=== PATIENT | male | born 2000 | race Two or more races ===

== ENCOUNTER 2022-01-07 21:56 | Emergency (ER) | payer MEDICAID ==
[~2022-01-07] VITALS: Ht 170.2 cm; Wt 75.0 kg
[2022-01-07] MEDS ORDERED: BACITRACIN 28 GM OINTMENT TP ONE (22:45)
[2022-01-07] MEDS ORDERED: LIDOCAINE 1% 10 ML VIAL SQ ONE (22:45)
[2022-01-07] MEDS ORDERED: POVIDONE-IODINE 10% 15 ML SOLUTION UD TP ONE (22:45)
[2022-01-07 23:30] VITALS: BP 121/65
== END 2022-01-07 23:37 | disposition home or self-care (01) ==
LOC: EMS 21:58
DX: S61.411A Laceration without foreign body of right hand, initial encounter (principal); J45.909 Unspecified asthma, uncomplicated; F17.210 Nicotine dependence, cigarettes, uncomplicated; F12.90 Cannabis use, unspecified, uncomplicated; W26.0XXA Contact with knife, initial encounter; Y93.89 Activity, other specified; Y92.89 Other specified places as the place of occurrence of the external cause; Y99.8 Other external cause status
CPT/HCPCS: 99282; 12001; J3490; 99283

== ENCOUNTER 2022-01-17 13:15 | Emergency (ER) | payer MEDICAID ==
[~2022-01-17] VITALS: Ht 172.7 cm; Wt 90.9 kg
[2022-01-17 13:26] VITALS: BP 114/61
== END 2022-01-17 16:05 | disposition home or self-care (01) ==
LOC: EMS 13:21
DX: S61.411D Laceration without foreign body of right hand, subsequent encounter (principal); J45.909 Unspecified asthma, uncomplicated; F17.210 Nicotine dependence, cigarettes, uncomplicated; F12.90 Cannabis use, unspecified, uncomplicated; X58.XXXD Exposure to other specified factors, subsequent encounter
CPT/HCPCS: 99281; Z7502

== ENCOUNTER 2023-07-14 14:24 | Emergency (ER) | payer MEDICAID, OTHER ==
[~2023-07-14] VITALS: Ht 172.7 cm; Wt 100.0 kg
[2023-07-14 14:25] VITALS: TEMP 98.6
[2023-07-14] MEDS: IBUPROFEN 600 MG TABLET PO ONE (15:37)
[2023-07-14] MEDS: PERTUSS(ACELL),DIPH,TET/PF 0.5 ML SYRINGE [ADULT] IM. ONE (15:38)
[2023-07-14] MEDS: BACITRACIN 0.9 GM PACKET OINTMENT TP ONE (15:39)
[2023-07-14] MEDS: LIDOCAINE 2% 6 ML JELLY TP ONE (15:39)
[2023-07-14 15:51] VITALS: BP 131/80; PULSE 106; RESP 20
[2023-07-14] MEDS: ACETAMINOPHEN/CODEINE 300-30 MG TABLET PO ONE (16:05)
[2023-07-14] MEDS ORDERED: ACET-2080 PO (18:00)
[2023-07-14] MEDS ORDERED: IBUP-1554 PO (18:00)
== END 2023-07-14 18:11 | disposition home or self-care (01) ==
LOC: EMS 14:24
DX: S13.4XXA Sprain of ligaments of cervical spine, initial encounter (principal); S01.01XA Laceration without foreign body of scalp, initial encounter; S50.12XA Contusion of left forearm, initial encounter; S20.212A Contusion of left front wall of thorax, initial encounter; J45.909 Unspecified asthma, uncomplicated; F17.210 Nicotine dependence, cigarettes, uncomplicated; F12.90 Cannabis use, unspecified, uncomplicated; W01.0XXA Fall on same level from slipping, tripping and stumbling without subsequent striking against object, initial encounter; Y93.89 Activity, other specified; Y92.89 Other specified places as the place of occurrence of the external cause; Y99.8 Other external cause status
CPT/HCPCS: 99285; 70450; 71101; 72070; 73090; 72125; 90715; 90471; 12002; Q9967